=== PATIENT | male | born 1980 | race African-American/Black ===

== ENCOUNTER 2017-10-11 22:53 | Emergency (ER) | payer OTHER ==
[2017-10-11 23:06] VITALS: BP 124/74; PULSE 101; TEMP 98.2; BMI 22.6
== END 2017-10-12 00:39 | disposition left against medical advice (07) ==
LOC: JER 22:53
DX: Z53.21 Procedure and treatment not carried out due to patient leaving prior to being seen by health care provider (principal)
CPT/HCPCS: 99281-25

== ENCOUNTER 2017-10-12 04:03 | Emergency (ER) | payer OTHER ==
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
[2017-10-12] MEDS ORDERED: METHOCARBAMOL 500 MG TABLET PO ONE (04:44)
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
[2017-10-12 04:53] VITALS: BP 128/88; PULSE 83; TEMP 97.7; BMI 22.5
[2017-10-12] MEDS ORDERED: METHOCARBAMOL 500 MG TABLET ONE (04:53)
== END 2017-10-12 06:42 | disposition home or self-care (01) ==
LOC: JER 04:03
DX: S70.01XA Contusion of right hip, initial encounter (principal); V03.90XA Pedestrian on foot injured in collision with car, pick-up truck or van, unspecified whether traffic or nontraffic accident, initial encounter; Y93.89 Activity, other specified; Y92.410 Unspecified street and highway as the place of occurrence of the external cause
CPT/HCPCS: 73502-TC-RT; 73552-TC-RT; 73562-TC-RT; 99282-25

== ENCOUNTER 2018-03-07 10:30 | Emergency (ER) | payer OTHER ==
--- NOTE | 2018-03-07 10:43 | PDOC ---
History of Present Illness - General History Source: Patient Exam Limitations: No Limitations - History of Present Illness Initial Comments: 03/07/18 10:52 The patient is a 37 year old male, with no significant past medical history, who presents to the emergency department s/p presyncopal episode earlier today. Per EMS patient had a viral URI, with cough and nasal congestion 5 days ago. Since then patient reports lifting 3 heavy boxes 2 days ago, and subsequently becoming short of breath, diaphoretic, weak, and dizzy. The patient reports his symptoms at the time resolved on their own. Patient states his symptoms are exacerbated when going from lying flat to standing. However, today, patient reports similar symptoms while at work and EMS was activated. When EMS arrived on scene, patient had a BGM of 336, was lightheaded and diaphoretic. Patient denies any chest pain, palpitations, or lower extremity edema. He reports a headache, but denies any fever, chills, or dizziness. He reports some nausea, but denies any abdominal pain, vomiting, diarrhea, or constipation. He denies any dysuria, hematuria, frequency, or urgency. He denies any recent travel or sick contacts. Allergies: NKDA Past Surgical History: None reported Social History: Ocassional smoker. Social ETOH use. No recreational drug use. Family History: Diabetes <Carla Gruber - Last Filed: 03/07/18 14:35> - General History Source: Patient Exam Limitations: No Limitations <Jaimie Lion - Last Filed: 03/07/18 14:53> - General Chief Complaint: Weakness Stated Complaint: WEAKNESS Time Seen by Provider: 03/07/18 10:41 Past History <Carla Gruber - Last Filed: 03/07/18 14:35> - Past Medical History COPD: No - Suicide/Smoking/Psychosocial Hx Smoking History: Never smoked Have you smoked in the past 12 months: No Hx Alcohol Use: No Drug/Substance Use Hx: No Substance Use Type: None <Jaimie Lion - Last Filed: 03/07/18 14:53> - Past Medical History Allergies/Adverse Reactions: Allergies Allergy/AdvReac Type Severity Reaction Status Date / Time No Known Allergies Allergy Verified 03/07/18 11:25 Home Medications: Ambulatory Orders Methocarbamol [Robaxin -] 500 mg PO BID #14 tablet 10/12/17 Review of Systems - Review of Systems Able to Perform ROS?: Yes Comments:: 03/07/18 11:12 GENERAL/CONSTITUTIONAL: +Weakness. No fever or chills. HEAD, EYES, EARS, NOSE AND THROAT: No change in vision. No ear pain or discharge. No sore throat. CARDIOVASCULAR: +Diaphoresis, shortness of breath. No chest pain. RESPIRATORY: +Recent cough and nasal congestion. No wheezing, or hemoptysis. GASTROINTESTINAL: +Nausea. No vomiting, diarrhea or constipation. GENITOURINARY: No dysuria, frequency, or change in urination. MUSCULOSKELETAL: No joint or muscle swelling or pain. No neck or back pain. SKIN: No rash NEUROLOGIC: +Headache, lightheadedness, dizzy. No loss of consciousness. ENDOCRINE: No increased thirst. No abnormal weight change. HEMATOLOGIC/LYMPHATIC: No anemia, easy bleeding, or history of blood clots. ALLERGIC/IMMUNOLOGIC: No hives or skin allergy. <Carla Gruber - Last Filed: 03/07/18 14:35> *Physical Exam - Physical Exam Comments: 03/07/18 12:02 GENERAL: The patient is in no acute distress. HEAD: Normal with no signs of trauma. EYES: PERRLA, EOMI, sclera anicteric, conjunctiva clear. ENT: Ears normal, nares patent, oropharynx clear without exudates. Moist mucous membranes. NECK: Normal range of motion, supple without lymphadenopathy, JVD, or masses. LUNGS: Breath sounds equal, clear to auscultation bilaterally. No wheezes, and no crackles. HEART: Regular rate and rhythm, normal S1 and S2 without murmur, rub or gallop. ABDOMEN: Soft, nontender, normoactive bowel sounds. No guarding, no rebound. No masses palpable. EXTREMITIES: Normal range of motion, no edema. No clubbing or cyanosis. No erythema, or tenderness. NEUROLOGICAL: Cranial nerves II through XII grossly intact. Normal speech. No focal neurological deficits. MUSCULOSKELETAL: Back non-tender to palpation, no CVA tenderness SKIN: Warm, Dry, normal turgor, no rashes or lesions noted. <Carla Gruber - Last Filed: 03/07/18 14:35> ED Treatment Course - LABORATORY CBC & Chemistry Diagram: 03/07/18 12:10 05/23/18 12:10 - RADIOLOGY Radiograph Interpretation: 03/07/18 14:35 EXAM: Head CT INTERPRETED BY: Dr. Glass REVIEWED BY: Dr. Lion. 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 Comparison with prior CT scan of the brain or a nonemergent contrast-enhanced MRI of the brain is needed for further evaluation to rule out the possibility of right- side foramen of Garcia narrowing/stenosis. <Carla Gruber - Last Filed: 03/07/18 14:35> - LABORATORY CBC & Chemistry Diagram: 03/07/18 12:10 03/07/18 12:10 <Jaimie Lion - Last Filed: 03/07/18 14:53> Medical Decision Making - Medical Decision Making 03/07/18 14:36 First call placed to Dr. Prado at 14:34. Case discussed at this time. <Carla Gruber - Last Filed: 03/07/18 14:35> - Medical Decision Making This is a 37 yo M who presents to the ER with a complaint of lightheadedness when he stands Pt has had an uri that started 4 days ago He has noted lightheadedness with standing for the past 2 days Today while at work, he noted lightheadedness and headache with standing Headache started 1 hour prior to arrival in the ER No syncope No focal weakness or numbness No fevers or chills No chest pain No palpitation 03/07/18 13:45 Laboratory Tests 03/07/18 03/07/18 12:10 12:10 WBC 5.3 Hgb 13.6 Hct 40.7 Plt Count 142 Sodium 143 Potassium 4.1 Chloride 108 H Carbon Dioxide 29 BUN 14 Creatinine 0.9 Random Glucose 86 Creatine Kinase 240 Creatine Kinase Index 0.4 CK-MB (CK-2) 1.106 Troponin I < 0.02 TSH 0.97 03/07/18 14:31 CT head: moderate dilitation of the right lateral ventricle relative to the left 03/07/18 14:[address] Robles requests consultation with Neurosurgery Call placed to Dr Lopez 03/07/18 14:[address] Lopez 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 Can follow up in office Pt states he has known about this for the past 8-9 years States he was offered surgery, did not want to do it because he was concerned about going in to a coma Will discharge to home Will ask pt to follow up with Dr Lopez Return to the ER for any other concerns or complaint Clinical Impression: dizziness, initial presentation vasovagal dizziness, initial presentation <Jaimie Lion - Last Filed: 03/07/18 14:53> *DC/Admit/Observation/Transfer - Attestations Scribe Attestion: 03/07/18 10:53 Documentation prepared by Carla Gruber, acting as medical records specialist for Jaimie Lion MD. <Carla Gruber - Last Filed: 03/07/18 14:35> - Discharge Dispostion Decision to Admit order: No <Jaimie Lion - Last Filed: 03/07/18 14:53> Diagnosis at time of Disposition: Dizziness - Discharge Dispostion Disposition: HOME Condition at time of disposition: Stable - Referrals Referrals: Javon Arreola [Primary Care Provider] - Feng Lopez MD [Staff Physician] - - Patient Instructions Printed Discharge Instructions: DI for Dizziness-Nonvertigo Additional Instructions: Mr Johnson Thank you for coming in to the ER today Please be sure to follow up with your primary care physician within 2 -3 days Please follow up with Dr. Lopez (neurosurgery) Return to the ER for any other concerns or complaints Stay hydrated - Post Discharge Activity Forms/Work/School Notes: Back to Work
[2018-03-07] MEDS ORDERED: SODIUM CHLORIDE 1,000 ML IV STA ×2 (11:12→11:53)
[2018-03-07 11:25] VITALS: TEMP 97.7; BMI 23.0
[2018-03-07] MEDS ORDERED: ACETAMINOPHEN 325 MG TABLET (FP) PO ONE (11:53)
[2018-03-07] MEDS ORDERED: ACETAMINOPHEN 325 MG TABLET (FP) ONE (12:22)
[2018-03-07 12:41] LABS: EOS % 1.4 % (0-4.5); HEMATOCRIT 40.7 % (35.4-49); HEMOGLOBIN 13.6 GM/dL (11.7-16.9); LYMPH % 43.2 % (8-40); MCH 34.1 pg (25.7-33.7); MCHC 33.4 g/dl (32.0-35.9); MEAN CELL VOLUME 102.1 fl (80-96); MEAN PLT VOLUME 8.4 fl (7.5-11.1); MONO % 10.1 % (3.8-10.2); NEUT % 44.3 % (42.8-82.8); PLATELET COUNT 142 K/MM3 (134-434); RBC 3.98 M/mm3 (4.00-5.60); RDW 12.1 % (11.9-15.9); WHITE BLOOD COUNT 5.3 K/mm3 (4.0-10.0)
[2018-03-07 12:57] LABS: ALBUMIN 3.9 g/dl (3.4-5.0); ANION GAP 6 (8-16); BLOOD UREA NITROGEN 14 mg/dL (7-18); CALCIUM 8.5 mg/dL (8.5-10.1); CHLORIDE 108 mmol/L (98-107); CO2 29 mmol/L (21-32); GLUCOSE,RANDOM 86 mg/dL (74-106); POTASSIUM 4.1 mmol/L (3.5-5.1); SODIUM 143 mmol/L (136-145)
[2018-03-07 13:09] LABS: ALK PHOS 92 U/L (45-117); CREATININE 0.9 mg/dL (0.7-1.3); SGOT/AST 17 U/L (15-37); SGPT/ALT 13 U/L (12-78); TOT PROT 7.4 g/dl (6.4-8.2)
[2018-03-07 15:32] VITALS: BP 118/75; PULSE 61
== END 2018-03-07 15:27 | disposition home or self-care (01) ==
LOC: JER 10:30
PROC: 3E0337Z Introduction of Electrolytic and Water Balance Substance into Peripheral Vein, Percutaneous Approach (ICD-10-PCS; principal; 2018-03-07)
DX: R42 Dizziness and giddiness (principal)
CPT/HCPCS: 36415; 70450-TC; 80053; 82550; 82553; 84443; 84484; 85025; 96360; 96361; 99284-25; J7030